=== PATIENT | male | born 1995 | race African-American/Black ===

== ENCOUNTER 2017-02-02 13:34 | Emergency (ER) | payer MEDICAID ==
[~2017-02-02] VITALS: Ht 182.9 cm; Wt 70.3 kg
[~2017-02-02 13:34] MED LIST: IBUPROFEN600 MG ORAL; KEFLEX500 MG ORAL; NKM
[2017-02-02] MEDS ORDERED: NKM (13:42)
[2017-02-02 13:55] VITALS: BP 118/68
--- NOTE | 2017-02-02 14:14 | Emergency Room Report ---
History of Present Illness General Chief Complaint: Skin Rash/Abscess Source: Patient Present Illness HPI 21-year-old male presents emergency department complaining of acute onset it she rash, swelling of the cheeks in addition to multiple pustules on the face status post eating onions. Patient states that he made have an allergy to onions as in the past has had similar reaction. Patient denies wheezing, swelling of the throat or difficulty breathing. Patient denies swelling of the lips or tongue. Patient denies nausea vomiting fevers or chills. Patient states he has not taken any medication for symptoms. Denies CP, Palpitations, LOC, AMS, dizziness, Changes in Vision, Sensation, paresthesias, or a sudden severe headache. Allergies: Coded Allergies: No Known Allergies (Unverified , 09/08/14) Patient History Past Medical History: see triage record Past Surgical History: none Pertinent Family History: none Immunizations: UTD Reviewed Nursing Documentation: PMH: Agreed, PSxH: Agreed Nursing Documentation-PMH Past Medical History: No Stated History Hx Gastrointestinal Problems: No Review of Systems All Other Systems: negative except mentioned in HPI Physical Exam Vital Signs Date Time Temp Pulse Resp B/P Pulse Ox O2 Delivery O2 Flow Rate FiO2 02/02/17 13:39 98.2 89 16 118/68 98 Room Air Sp02 EP Interpretation: reviewed, normal General Appearance: no apparent distress, alert, GCS 15, non-toxic Head: normocephalic, atraumatic Eyes: bilateral eye PERRL, bilateral eye normal inspection ENT: hearing grossly normal, normal pharynx, no angioedema, normal voice, uvula midline, moist mucus membranes Neck: full range of motion, supple/symm/no masses Respiratory: lungs clear, normal breath sounds, no wheezing, speaking full sentences Cardiovascular #1: regular rate, rhythm, no edema Musculoskeletal: back normal, gait/station normal, normal range of motion, non- tender Neurologic: alert, oriented x3, responsive, motor strength/tone normal, sensory intact, speech normal Psychiatric: judgement/insight normal, memory normal, mood/affect normal, no suicidal/homicidal ideation Skin: normal color, warm/dry, well hydrated, rash - pustular rash to the cheeks bilaterally, chin, nose, and forehead, mild swellin noted to the left side of chin, millie suspicious for acne due to pustules. Lymphatic: no adenopathy Medical Decision Making PA Attestation Dr. Garvin is my supervising Physician whom patient management has been discussed with. Diagnostic Impression: Primary Impression: Rash and other nonspecific skin eruption ER Course 21-year-old male presents emergency department complaining of acute onset it she rash, swelling of the cheeks in addition to multiple pustules on the face status post eating onions. Patient states that he made have an allergy to onions as in the past has had similar reaction. Patient denies wheezing, swelling of the throat or difficulty breathing. Patient denies swelling of the lips or tongue. Patient denies nausea vomiting fevers or chills. Patient states he has not taken any medication for symptoms. Ddx considered but are not limited to cellulitis, scabies, shingles, varicella, dermatitis, urticaria, eczema, tinea, acne Vital signs: are WNL, pt. is afebrile H&PE are most consistent with moderate acne. ORDERS: none required at this time, the diagnosis is clinical ED INTERVENTIONS: None required at this time. -d/w pt will treat with oral benadryl and abx. d/w pt to follow up with pcp or scientific research associate, may need allergy testing as well. DISCHARGE: At this time pt. is stable for d/c to home. Will provide printed patient care instructions, and any necessary prescriptions. Care plan and follow up instructions have been discussed with the patient prior to discharge. Last Vital Signs Date Time Temp Pulse Resp B/P Pulse Ox O2 Delivery O2 Flow Rate FiO2 02/02/17 13:55 98.2 16 118/68 98 Room Air 02/02/17 13:39 89 Disposition: HOME, SELF-CARE Condition: Stable Scripts Diphenhydramine Hcl* (BENADRYL*) 25 Mg Capsule 25 MG ORAL Q6H, #30 CAP Prov: Elli Pineda P.A. 02/02/17 Doxycycline Hyclate* (VIBRAMYCIN*) 100 Mg Capsule 100 MG ORAL EVERY 12 HOURS for 7 Days, #14 CAP 0 Refills Prov: Elli Pineda P.A. 02/02/17 Referrals: [facility],REFERRING (PCP) Patient Instructions: Rash Additional Instructions: Take medications as directed. Follow up with PCP in 3-5 days Return sooner to ED if new symptoms occur, or current symptoms become worse. - Please note that this Emergency Department Report was dictated using Logical [employer] room supervisor technology software, occasionally this can lead to erroneous entry secondary to interpretation by the dictation equipment. Elli Pineda Feb 02, 2017 14:14
[2017-02-02] MEDS ORDERED: VIBRAMYCIN100 MG ORAL (14:17)
[2017-02-02] MEDS ORDERED: BENADRYL25 MG ORAL (14:17)
[2017-02-02 14:18] VITALS: BP 118/68
== END 2017-02-02 14:27 | disposition home or self-care (01) ==
LOC: EMR 14:07
DX: R21 Rash and other nonspecific skin eruption (principal)
CPT/HCPCS: 99284

== ENCOUNTER 2017-05-18 22:43 | Emergency (ER) | payer MEDICAID ==
[~2017-05-18] VITALS: Ht 185.4 cm; Wt 73.5 kg
[~2017-05-18 22:43] MED LIST changes: +BENADRYL25 MG ORAL; +VIBRAMYCIN100 MG ORAL
[2017-05-18] MEDS ORDERED: NKM (22:53)
[2017-05-18 23:00] VITALS: BP 115/69
[2017-05-18] MEDS ORDERED: IBUPROFEN600 MG ORAL (23:32)
--- NOTE | 2017-05-18 23:33 | Emergency Room Report ---
History of Present Illness General Chief Complaint: Pain Source: Patient Present Illness HPI This is a 22-year-old male who is right-hand dominant. He works as a vehicle washer at a nearby restaurant. He presents with right wrist pain. He said pain occurred after work was carrying heavy tray. Worse with movement. No other complaint. No trauma. Pain is 7/10. Allergies: Coded Allergies: No Known Allergies (Unverified , 09/08/14) Patient History Past Medical History: none, see triage record, old chart reviewed Past Surgical History: none Pertinent Family History: none Social History: Denies: smoking Immunizations: other Reviewed Nursing Documentation: PMH: Agreed, PSxH: Agreed Nursing Documentation-PMH Past Medical History: No Stated History Hx Gastrointestinal Problems: No Review of Systems Eye: Denies: blurred vision, eye pain ENT: Denies: ear pain, nose congestion, throat swelling Respiratory: Denies: cough, shortness of breath Cardiovascular: Denies: chest pain, palpitations Gastrointestinal: Denies: abdominal pain, diarrhea, nausea, vomiting Musculoskeletal: Reports: joint pain, Denies: back pain Skin: Denies: rash Neurological: Denies: headache, numbness Endocrine: Denies: increased thirst, increased urine Hematologic/Lymphatic: Denies: easy bruising All Other Systems: negative except mentioned in HPI Physical Exam Vital Signs Date Time Temp Pulse Resp B/P Pulse Ox O2 Delivery O2 Flow Rate FiO2 05/18/17 22:49 98.1 67 14 119/71 97 Room Air vitals normal Sp02 EP Interpretation: reviewed, normal General Appearance: well appearing, no apparent distress, alert Head: normocephalic, atraumatic Eyes: bilateral eye EOMI, bilateral eye PERRL ENT: hearing grossly normal, normal pharynx Neck: full range of motion, supple, no meningismus Respiratory: chest non-tender, lungs clear, normal breath sounds Cardiovascular #1: regular rate, rhythm, no murmur Gastrointestinal: normal bowel sounds, non tender, no mass, no organomegaly, no bruit, non-distended Musculoskeletal: back normal, gait/station normal, normal range of motion, other - TTP with movement of wrist. Psychiatric: mood/affect normal Skin: warm/dry Procedures Splinting Splinting : Consent: Verbal Location: Right wrist Pre-Made Type: velcro Pre-Proc Neuro Vasc Exam: normal Post-Proc Neuro Vasc Exam: normal Patient Tolerated: Well Complications: None Medical Decision Making Diagnostic Impression: Primary Impression: Right wrist sprain Qualified Codes: S63.501A - Unspecified sprain of right wrist, initial encounter ER Course Patient with wrist sprain. No trauma. No fracture or dislocation. No evidence of septic joint. Last Vital Signs Date Time Temp Pulse Resp B/P Pulse Ox O2 Delivery O2 Flow Rate FiO2 05/18/17 22:49 98.1 67 14 119/71 97 Room Air Status: unchanged Disposition: HOME, SELF-CARE Condition: Stable Scripts Ibuprofen* (MOTRIN*) 600 Mg Tablet 600 MG ORAL THREE TIMES A DAY, #30 TAB 0 Refills Prov: CHARITO SINCLAIR M.D. 05/18/17 Additional Instructions: Follow up with your doctor in 7 days. Return if worse. CHARITO SINCLAIR M.D. May 18, 2017 23:33
[2017-05-18 23:40] VITALS: BP 115/69
== END 2017-05-18 23:40 | disposition home or self-care (01) ==
LOC: EMR 23:34
DX: S63.501A Unspecified sprain of right wrist, initial encounter (principal); X50.0XXA Overexertion from strenuous movement or load, initial encounter; X50.9XXA Other and unspecified overexertion or strenuous movements or postures, initial encounter; Y92.511 Restaurant or cafe as the place of occurrence of the external cause; Y99.0 Civilian activity done for income or pay
CPT/HCPCS: 29260; 99283